=== PATIENT | male | born 1950 | race Caucasian/White ===

== ENCOUNTER 2020-11-24 17:32 | Outpatient (CLI) | payer MEDICARE, SELFPAY | END 2020-11-24 17:33 | disposition home or self-care (01) | LOC: ANHCOVIDVC 17:32 | PROVIDERS: PCP Family Medicine | DX: Z23 Encounter for immunization (principal) | CPT/HCPCS: 0001A; 91300 ==

== ENCOUNTER 2020-12-15 17:26 | Outpatient (CLI) | payer MEDICARE, SELFPAY | END 2020-12-15 17:27 | disposition home or self-care (01) | LOC: ANHCOVIDVC 17:26 | PROVIDERS: PCP Family Medicine | DX: Z23 Encounter for immunization (principal) | CPT/HCPCS: 0002A; 91300 ==

== ENCOUNTER 2022-11-18 09:22 | Outpatient (CLI) | payer MEDICARE, SELFPAY ==
[2022-11-18 10:06] LABS: Anion Gap 4 mmol/L (8-16); Blood Urea Nitrogen 15 mg/dL (9-20); Calcium 8.7 mg/dL (8.4-10.2); Carbon Dioxide 33 mmol/L (22-30); Chloride 98 mmol/L (98-107); Estimated Glomerular Filt Rate > 60; Glucose 159 mg/dL (65-110); Sodium 135 mmol/L (137-145)
== END 2022-11-18 09:23 | disposition home or self-care (01) ==
LOC: ANHSURGERY 09:28
PROVIDERS: Anesthesiology; PCP Family Medicine Adolescent Medicine; Visit Provider Plastic Surgery
DX: Z51.81 Encounter for therapeutic drug level monitoring (principal); Z01.818 Encounter for other preprocedural examination
CPT/HCPCS: 36415; 80048

== ENCOUNTER 2022-11-25 00:39 | Day surgery (SDC) | payer MEDICARE, SELFPAY ==
[2022-11-16 13:11] VITALS: BMI 33.2
--- NOTE | 2022-11-16 13:30 | PC.NURSE ---
Report to the Outpatient Waiting Room, entrance under the green pavilion located off [facility], at time __6:00AM on date __11/25/22 . Planned Procedure Time: __7:30AM . Time changes happen often and if your time is changed the preop area will call you the afternoon before. - You and your visitor will be asked to self-screen and do not enter if you have any COVID symptoms. - Only one visitor is requested with a max of two and NO children visitors are allowed at this time. - The patient visitor may be requested to leave or wait in car when not with patient due to distancing restrictions. - A mask is optional within the hospital at this time. Patients may have clear liquids (water, carbonated beverages, clear teas, apple juice) until 3 hours prior to surgery with a maximum of 20 ounces. - No food from midnight until time of surgery Take the following medications with a SIP of water the morning of surgery: __AMLODIPINE, METOPROLOL DO NOT STOP ANY OF YOUR OTHER PRESCRIPTION MEDICATIONS PRIOR TO SURGERY ?EXCEPT THE FOLLOWING Medications to discontinue per physician ___NONE Date to take last dose Please no make-up, nail slovenian, hairspray, perfume, deodorant, or body powder the day of surgery. No jewelry (including any body piercings) or valuables the day of surgery, leave them at home. Please take a shower or bath the night before, or the morning of, surgery with an antibacterial soap. Wear comfortable, loose fitting clothing. Children are encouraged to wear pajamas. - Jewelry must be removed prior to entering the operating room. Rings and piercings that are not removed may be cut off. - The hospital will not accept responsibility for valuables. - Please leave all valuables, including medications, at home the day of surgery. If you are going home after surgery, a licensed auto haulaway driver must drive you home. - NO public transportation without another adult if you receive anesthesia. - We recommend that an adult stay with you for 24 hours following discharge. - We also recommend that you do not drive, make important decision, drink alcoholic beverages, or take any drugs that were not prescribed by your health care provider for at least 24 hours after your discharge time. Follow any additional instructions given to you from your surgeon. If you or anyone in your household have experienced Covid symptoms in the past week, please notify your surgeon or the nurse liaison at the phone number below for possible testing. Telephone instructions given to ___PATIENT and asked if any additional questions and then verbalized understanding. Patient advised to call surgeon office or pre surgery nurse liaison [phone] if any additional questions.
--- NOTE | 2022-11-24 11:47 | P.PNAN_ITS ---
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 Patient Data Age: 72 Gender: M Height: 1.78 m Weight: 105 kg Allergies Allergy/AdvReac Type Severity Reaction Status Date / Time No Known Allergies Allergy Verified 11/16/22 13:07 Home Medications Medication Instructions Recorded Confirmed Type blood-glucose meter (OneTouch 02/03/22 02/04/22 History Verio Flex Meter) metoprolol tartrate 50 mg tablet 50 mg PO BID #180 tabs 05/03/22 11/16/22 Rx blood sugar diagnostic (OneTouch #100 ea 09/09/22 Rx Verio test strips) amlodipine 10 mg tablet 10 mg PO QAM 11/16/22 11/16/22 History valsartan 320 1 tablet PO QAM 11/16/22 11/16/22 History mg-hydrochlorothiazide 25 mg tablet Patient hx anesthesia problems: none Family hx anesthesia problems: none Results Review: All pre-operative results and documents have been reviewed as part of the pre- operative evaluation. [facility] Past Medical History Medical History (Updated 11/24/22 @ 11:48 by Darek Gonzales DO) Essential (primary) hypertension Type 2 diabetes mellitus without complications Surgical History Surgical History Hx of removal of cyst left shoulder and lip Family History Family History (Updated 02/03/22 @ 09:47 by Karey Motley MA) Father Acute myocardial infarction Grandparent Diabetes mellitus Mother Hypertension Social History Social History (Updated 02/03/22 @ 09:48 by Karey Motley MA) Smoking status: Never smoker Second hand tobacco smoke exposure: No Alcohol intake: never Substance use: never Substance use type: does not use Living arrangements: with family Additional living arrangements comments: Occupation/Education: retired Gender identity (if verbalized by the patient): Male Sexual Orientation (if Verbalized by the Patient): Straight or Heterosexual Spiritual care concerns: No Agree to blood products: Yes Coras - Evmarilynn Final PreProcedure Day of Procedure 11/24/22 11:47 Patient weight: obese Heart: regular rate and rhythm Lungs: clear to auscultation Airway: Mallampati scale class II Neurological: alert and oriented Last oral intake: >/= 8 hours ASA classification: III Emergent: no Anesthetic plan: proceed Anesthesia type and monitoring: general GIVS and LMA and standard monitoring Results Review: All pre-operative results and documents have been reviewed as part of the pre- operative evaluation. Informed Consent: The patient's anesthetic plan and its attendant risks and benefits were discussed with the patient/family/POA. Questions were solicited and answers provided to the satisfaction of the patient/family/POA.
[2022-11-25] MEDS: LACTATED RINGERS 1,000 ML 30 ML IV CONT (06:25)
[2022-11-25 06:30] LABS: Glucose Point of Care 169 mg/dl (65-105)
[2022-11-25 07:00] VITALS: BP 140/77; PULSE 71; RESP 18; TEMP 36.6; O2SAT 98
--- NOTE | 2022-11-25 07:10 | WPDHPUPDATE1 ---
History and Physical Update Update Date/Time: 11/25/22 07:10 History and Physical has been reviewed, including an updated exam of the patient. There are NO changes in the patient's condition. Risks, benefits, and alternatives have been discussed and questions answered. Patient agrees to proceed with procedure.
[2022-11-25] MEDS: LIDO 1%/EPINEPHRINE 1:100,000 20 ML VIAL 5 ML INFILTRATE (07:46)
--- NOTE | 2022-11-25 07:55 | SUR.OPER ---
Frozen section specimen sent with CONTRERAS Devi and received in pathology by Nanette
[2022-11-25] MEDS: BACITRACIN OINTMENT 15 GM TUBE 1 APPLIC TOPICAL (09:02)
[2022-11-25 09:09] VITALS: BP 119/76; PULSE 86; RESP 19; O2SAT 94
[2022-11-25 09:19] LABS: Glucose Point of Care 187 mg/dl (65-105)
--- NOTE | 2022-11-25 09:26 | W.PM.PROC2 ---
Procedure Note - Detailed Date of Procedure 11/25/22 Pre-op Diagnosis Ulcerative Neoplasm of Lt Nasal Sidewall Post-op Diagnosis Other (BCC left side of nose. 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 5 cm x 1.3 cm wide excision of fghxekzd-sa-rqug for positive margin with complex repair 6 cm Surgeon Chris Live MD Anesthesia MAC Indications Melanoma and wkpxjswb-od-qjiz of the right nasolabial fold with insufficient margin of both . Findings BCC of nose on FS, excised. Description of Procedure The patient waited in the holding area with his . We had additional discussion regarding the tumors involved and the fact that we were planning to remove the different tumor in the office in the near future from the right cheek. Today's procedure is for a wide excision of melanoma and melanoma site to of the right nasal sidewall. The primary tumor has been completely excised already . We are also excising a neoplasm on the left side of his nose which diagnosis will be determined with frozen section. The patient his concurred and the sites were marked. He was rolled to the operating room where he was placed supine on the operating table. He was given IV sedation with an LMA. The face and neck were prepped and draped in usual fashion. The site on the nose and the site on the right nasal labial fold were carefully examined under loupe magnification and marked for the planned excision. Both sites were infiltrated with 1% lidocaine with epinephrine. The lesion on the left side of the nose was taken 1st with a full-thickness skin ellipse the most cephalad and was marked with a suture for 12 o'clock. Specimen was sent to pathology for frozen section. The report was that this was basal cell carcinoma and that the margins were free. Full-thickness skin graft was harvested from the left upper neck. The donor site was closed with intradermal 4-0 Vicryl and a running 5 0 nylon. The graft was defatted and inset with 5 0 nylon Including some quilting sutures through the middle to prevent hematoma formation. While awaiting the pathology report we undertook the wide excision on the right nasal labial fold. This was carefully marked for a 5-6 mm margin based on the existing scar. This was taken just into the subcutaneous tissue. The specimen was sent to pathology without markings. The wound margins were extensively undermined over 2 cm along the lateral aspect and just a few mm on the medial aspect alongside the nose. This allowed freedom of repositioning of the cheek skin. This was approximated with intradermal 3-0 Vicryl suture taking care not to start the lower eyelid or the nasal ala or the upper lip. The skin was then closed with a running 5 0 nylon. The patient is discharged home with prescription for cephalexin 15. And tramadol 8. Estimated Blood Loss 10 Drains No Packing No Pathology Yes Complications No immediate complications Condition Stable Disposition Same day
[2022-11-25 09:39] VITALS: BP 121/83; PULSE 87; RESP 18; O2SAT 95
[2022-11-25 10:09] VITALS: BP 133/80; PULSE 76; RESP 19
[2022-11-25 10:30] VITALS: BP 139/83; PULSE 75; RESP 18
== END 2022-11-25 10:36 | disposition home or self-care (01) ==
PROVIDERS: PCP Family Medicine Adolescent Medicine; Visit Provider Plastic Surgery
PROC: (CPT 11642; principal; 2022-11-25 07:30)
DX: C44.311 Basal cell carcinoma of skin of nose (principal); D03.39 Melanoma in situ of other parts of face; I10 Essential (primary) hypertension; E11.9 Type 2 diabetes mellitus without complications; E66.9 Obesity, unspecified; Z68.31 Body mass index [BMI] 31.0-31.9, adult
CPT/HCPCS: 11642; 15260; 11646; 13152; 82948; 88305; 88331; A9270; J2704; J7120

== ENCOUNTER 2023-04-11 01:47 | Day surgery (SDC) | payer MEDICARE, SELFPAY ==
[2023-03-31 14:18] VITALS: BMI 31.6
--- NOTE | 2023-04-08 14:26 | P.HP_ITS ---
History of Present Illness History of Present Illness Consent: Risks, benefits, and alternatives have been discussed and questions answered. Patient agrees to proceed with procedure. Chief complaint: other fecal abnormalities Narrative: Manjeet Louis is a 72 year old male Referred for colon cancer screening. He had a positive FIT test Review of Systems Review of Systems: All systems reviewed & are unremarkable except as noted in HPI and below PMFSH Past Medical History Medical History Essential (primary) hypertension Type 2 diabetes mellitus without complications Surgical History Surgical History Hx of removal of cyst left shoulder and lip Family History Family History Father Acute myocardial infarction Grandparent Diabetes mellitus Mother Hypertension Social History Social History Smoking status: Never smoker Second hand tobacco smoke exposure: No Alcohol intake: never Substance use: never Substance use type: does not use Living arrangements: with family Additional living arrangements comments: Occupation/Education: retired Gender identity (if verbalized by the patient): Male Sexual Orientation (if Verbalized by the Patient): Straight or Heterosexual Spiritual care concerns: No Agree to blood products: Yes Meds Home Medications and Allergies Home Medications Medication Instructions Recorded Confirmed Type blood-glucose meter (Annex Productsuch 02/03/22 04/11/23 History Verio Flex Meter) amlodipine 10 mg tablet 10 mg PO QAM #90 tabs 01/26/23 04/11/23 Rx metoprolol tartrate 50 mg tablet 50 mg PO BID #180 tabs 01/26/23 04/11/23 Rx valsartan 320 1 tablet PO QAM #90 tabs 01/26/23 04/11/23 Rx mg-hydrochlorothiazide 25 mg tablet blood sugar diagnostic (OneBuckResumeTouch #100 ea 03/24/23 04/11/23 Rx Verio test strips) Allergies Allergy/AdvReac Type Severity Reaction Status Date / Time No Known Allergies Allergy Verified 04/11/23 07:11 Exam Const: General: alert Orientation/consciousness: patient oriented x3 Resp: Auscultation: clear to auscultation bilaterally Cardio: Rhythm: regular rhythm GI: GI Palp: Yes Soft to palpation and No Tenderness to palpation present (GI) Neuro: General: patient oriented x3 Assessment and Plan Assessment and plan (1) Colon cancer screening: Code(s): Z12.11 - Encounter for screening for malignant neoplasm of colon Status: Acute Assessment and Plan: Colonoscopy with possible biopsy or polypectomy or cautery or injection of substances.
[2023-04-11 07:13] VITALS: BP 138/78; PULSE 83; RESP 16; TEMP 36.2; O2SAT 99; BMI 30.2
[2023-04-11] MEDS: LACTATED RINGERS 1,000 ML 150 ML IV CONT (07:20)
--- NOTE | 2023-04-11 07:58 | P.PNAN_ITS ---
Anes - Initial Pre Proc Eval Procedure: Operation Date: 04/11/23 08:30 Proposed Procedures p Colonoscopy - Jesus Murray MD Date/Time: 04/11/23 07:58 Surgeon: Jesus Murray MD Pre Op Diagnosis: other fecal abnormalities Patient Data Age: 72 Gender: M Height: 1.78 m Weight: 95.7 kg Last Vital Signs Temp 97.1 F L 04/11/23 07:13 Pulse 83 04/11/23 07:13 Resp 16 04/11/23 07:13 BP 138/78 04/11/23 07:13 Pulse Ox 99 04/11/23 07:13 O2 Del Method Room Air 04/11/23 07:13 Allergies Allergy/AdvReac Type Severity Reaction Status Date / Time No Known Allergies Allergy Verified 04/11/23 07:11 Home Medications Medication Instructions Recorded Confirmed Type blood-glucose meter (OneTouch 02/03/22 04/11/23 History Verio Flex Meter) amlodipine 10 mg tablet 10 mg PO QAM #90 tabs 01/26/23 04/11/23 Rx metoprolol tartrate 50 mg tablet 50 mg PO BID #180 tabs 01/26/23 04/11/23 Rx valsartan 320 1 tablet PO QAM #90 tabs 01/26/23 04/11/23 Rx mg-hydrochlorothiazide 25 mg tablet blood sugar diagnostic (OneTouch #100 ea 03/24/23 04/11/23 Rx Verio test strips) Patient hx anesthesia problems: none Family hx anesthesia problems: none Results Review: All pre-operative results and documents have been reviewed as part of the pre- operative evaluation. [facility] Past Medical History Medical History (Updated 04/08/23 @ 14:28 by Jesus Murray MD) Essential (primary) hypertension Type 2 diabetes mellitus without complications Surgical History Surgical History Hx of removal of cyst left shoulder and lip Family History Family History (Updated 02/03/22 @ 09:47 by Karey Motley MA) Father Acute myocardial infarction Grandparent Diabetes mellitus Mother Hypertension Social History Social History (Updated 02/03/22 @ 09:48 by Karey Motley MA) Smoking status: Never smoker Second hand tobacco smoke exposure: No Alcohol intake: never Substance use: never Substance use type: does not use Living arrangements: with family Additional living arrangements comments: Occupation/Education: retired Gender identity (if verbalized by the patient): Male Sexual Orientation (if Verbalized by the Patient): Straight or Heterosexual Spiritual care concerns: No Agree to blood products: Yes Anes - Eval Final PreProcedure Day of Procedure 04/11/23 07:58 Patient weight: obese Heart: regular rate and rhythm Lungs: clear to auscultation Airway: Mallampati scale class II Neurological: alert and oriented Last oral intake: >/= 8 hours ASA classification: III Emergent: no Anesthetic plan: proceed Anesthesia type and monitoring: general GIVS and standard monitoring Results Review: All pre-operative results and documents have been reviewed as part of the pre- operative evaluation. Informed Consent: The patient's anesthetic plan and its attendant risks and benefits were discussed with the patient/family/POA. Questions were solicited and answers provided to the satisfaction of the patient/family/POA.
[2023-04-11 08:44] VITALS: BP 98/70; PULSE 69; RESP 15; O2SAT 95
[2023-04-11 08:54] VITALS: BP 119/75; PULSE 66; RESP 18; O2SAT 94
[2023-04-11 09:04] VITALS: BP 118/81; PULSE 70; RESP 16; O2SAT 99
== END 2023-04-11 09:09 | disposition home or self-care (01) ==
PROVIDERS: PCP Family Medicine Adolescent Medicine; Visit Provider Internal Medicine Gastroenterology
PROC: 0DJD8ZZ Inspection of Lower Intestinal Tract, Via Natural or Artificial Opening Endoscopic (ICD-10-PCS; CPT 45378; principal; 2023-04-11 08:30)
DX: Z12.11 Encounter for screening for malignant neoplasm of colon (principal); D12.8 Benign neoplasm of rectum; R19.5 Other fecal abnormalities; I10 Essential (primary) hypertension; E11.9 Type 2 diabetes mellitus without complications
CPT/HCPCS: 45385; 88305; J2704; J7120